=== PATIENT | female | born 1970 | race African-American/Black ===

== ENCOUNTER 2018-06-01 11:26 | Observation (INO) ==
[2018-06-01] MEDS ORDERED: Magnesium Sulfate Inj 2 GM in Sodium Chlor 0.9% Inj 96 ML IV.SIG ONE (12:42)
--- NOTE | 2018-06-01 12:58 | ED ---
HPI General Chief complaint: Eye Problems Stated complaint: headache/eye pain Time Seen by Provider: 06/01/18 12:33 Source: patient and RN notes reviewed Mode of arrival: ambulatory History of Present Illness HPI narrative: 47yF presenting with headache and right eye pain. The patient is visiting from [place] and says that she has a history of "too much fluid in my brain that was making the nerves in my left eye swollen" for which she was given 90 days of diamox, finished in March. She says that yesterday she began to have diffuse headache which is constant, not made better or worse by anything, moderate intensity, non-radiating, and associated with right eye pain. She woke up this morning and felt like she "had something stuck in my eye ". Denies recent head injury, fever or chills, confusion, visual disturbance, or difficulty ambulating. She has required LP in the past. Family history non-contributory. Related Data Home Medications Medication Instructions Recorded Confirmed insulin asp prt-insulin aspart 30 unit SUB-Q AC BREAKFAST 06/01/18 06/01/18 [Novolog Mix 70-30 U-100 Insuln] insulin aspart U-100 [Novolog 20 unit SUB-Q AC DINNER 06/01/18 06/01/18 U-100 Insulin aspart] metformin 500 mg PO BID 06/01/18 06/01/18 omeprazole 40 mg PO DAILY 06/01/18 06/01/18 oxycodone 15 mg PO Q4-6H PRN 06/01/18 06/01/18 Previous Rx's Medication Instructions Recorded atorvastatin [Lipitor] 10 mg PO DAILY #30 tab 06/01/18 Allergies Allergy/AdvReac Type Severity Reaction Status Date / Time No Known Allergies Allergy Verified 06/01/18 12:28 Review of Systems ROS: all other systems reviewed are negative Constitutional Denies fever(s) Eyes Reports eye pain ENT Denies nasal congestion Cardiovascular Denies chest pain Respiratory Denies cough Gastrointestinal Denies nausea Genitourinary Denies dysuria Musculoskeletal Denies back pain Neurologic Denies confusion Psychiatric Denies confusion PMFSH History History Provided By: Patient Medical History Medical History Pituitary tumor (Acute) Chronic back pain (Acute) Diabetes (Acute) GERD (gastroesophageal reflux disease) (Acute) Irritable bowel (Acute) Migraine (Acute) Surgical History Surgical History H/O laparoscopy (Acute) History of cholecystectomy (Acute) History of tubal ligation (Acute) Hx of fusion of cervical spine (Acute) H/O: hysterectomy (Acute) Family History Family History Mother Lung cancer Diabetes Sister Breast cancer Diabetes Social History Social History Substance History: No History of Abuse Second Hand Smoke Exposure: No Smoking Status: Never smoker How Often Do You Have a Drink Containing Alcohol: 2 to 4 times a month Recent Travel in [facility] within the Last 8 Weeks: No Recent Out of Country Travel within the Last 8 Weeks: No Immunization History Tetanus Immunization: Unsure Hx Influenza Vaccine This Season: Yes Exam Const General: healthy appearing and no acute distress HENMT Head: normocephalic and atraumatic Face and sinus: normal facial exam Eyes Other: Pupils 3 mm and reactive bilaterally, no afferent pupillary defect, subconjunctival injection of right eye. EOMI, no nystagmus or entrapment. IOP- 11 OS, 10 OD Visual acuity 20/50 bilaterally uncorrected Able to visualize optic discs bilaterally Chest Chest: normal inspection of the chest Resp Effort & Inspection: normal respiratory effort Auscultation: no rhonchi and no wheezes Cardio Rate: regular rate Rhythm: regular rhythm GI Inspection: non-distended Palpation: soft and nontender Skin General: no rashes or lesions noted Neuro General: alert, awake, oriented x3, no focal motor deficits and CN's II-XI intact bilaterally Other: Speech clear and fluent, motor strength 5/5 and sensation intact throughout, ambulates with steady even gait Psych Affect: normal affect Course Consultations Consultation #1: Case discussed with Dr. Vital of neurology; if patient's headache is controlled, she can be discharged home on diamox 500 BID. Time: 14:00 Initial Documented Vital Signs Temperature 97.5 F L 06/01/18 12:01 Pulse Rate 73 06/01/18 12:01 Respiratory Rate 20 06/01/18 12:01 Blood Pressure 143/86 H 06/01/18 12:01 Pulse Oximetry 99 06/01/18 12:01 Last Documented Vital Signs Temperature 97.5 F L 06/01/18 12:01 Pulse Rate 88 06/01/18 16:17 Respiratory Rate 16 06/01/18 16:17 Blood Pressure 161/68 H 06/01/18 16:17 Pulse Oximetry 100 06/01/18 16:17 Medical Decision Making MDM Narrative Medical decision making narrative: Assessment: 47yF presenting with right eye pain and headache Plan: Pain control Basic labs [facility] Addendum: Patient has intractable headache despite multiple doses of medications , may need lumbar puncture for SINGLETON control. Case discussed with Dr. Keating of [facility]. Medical Screen Exam Complete: Yes Emergency Medical Condition: Yes Differential Diagnosis Differential Diagnosis: Differential diagnosis includes, but is not limited to: pseudotumor cerebri, hydrocephalus, acute angle closure glaucoma, corneal abrasion, migraine Lab Data Lab results reviewed: Yes I reviewed the patient's lab results. Result diagrams: 06/01/18 12:53 06/01/18 12:53 Lab Results 06/01/18 06/01/18 Range/Units 12:53 12:53 WBC 7.2 (4.0-11.0) th/mm3 RBC 4.23 (4.00-5.30) mil/mm3 Hgb 11.5 L (11.6-15.3) gm/dL Hct 35.1 (35.0-46.0) % MCV 83.0 (80.0-100.0) fL MCH 27.3 (27.0-34.0) pg MCHC 32.9 (32.0-36.0) % RDW 14.3 (11.6-17.2) % Plt Count 283 (150-450) th/mm3 MPV 7.8 (7.0-11.0) fL Neut % (Auto) 48.1 (16.0-70.0) % Lymph % (Auto) 41.4 (9.0-44.0) % [place] % (Auto) 9.1 H (0.0-8.0) % Eos % (Auto) 1.0 (0.0-4.0) % Baso % (Auto) 0.4 (0.0-2.0) % Neut # (Auto) 3.5 (1.8-7.7) th/mm3 Lymph # (Auto) 3.0 (1.0-4.8) th/mm3 [place] # (Auto) 0.7 (0.0-0.9) th/mm3 Eos # (Auto) 0.1 (0.0-0.4) th/mm3 Baso # (Auto) 0.0 (0.0-0.2) th/mm3 WBC Differential . Differential Comment Auto diff final Sodium 141 (136-145) meq/L Potassium 3.3 L (3.5-5.1) meq/L Chloride 105 (98-107) meq/L Carbon Dioxide 29.5 (21.0-32.0) meq/L Anion Gap 7 (5-15) meq/L BUN 6 L (7-18) mg/dL Creatinine 0.61 (0.50-1.00) mg/dL Estimated GFR Greater than 89 (>89) mL/min Random Glucose 73 L (74-106) mg/dL Calcium 8.4 L (8.5-10.1) mg/dL Total Bilirubin 0.6 (0.2-1.0) mg/dL AST 19 (15-37) U/L ALT 30 (10-53) U/L Alkaline Phosphatase 115 (45-117) U/L Total Protein 7.5 (6.4-8.2) g/dL Albumin 3.4 (3.4-5.0) g/dL Imaging Data Radiologist's impression: Head CT 06/01/18 12:42 CONCLUSION: 1. Negative CT Head non contrast. . Discharge Plan Discharge Disposition Patient Disposition: 30 Still Patient Discharge Condition Condition: Stable Discharge Details Diagnosis: Pseudotumor cerebri, Acute intractable headache Physicians Team ED Provider: Myra Davis Attending Provider: Azucena Keating Other Providers: Jeremy Friedman Status ED Status: Admitted Observation Patient
[2018-06-01 13:11] LABS: Baso % (Auto) 0.4 % (0.0-2.0); Eos # (Auto) 0.1 th/mm3 (0.0-0.4); Hematocrit 35.1 % (35.0-46.0); Hemoglobin 11.5 gm/dL (11.6-15.3); Lymph % (Auto) 41.4 % (9.0-44.0); Mean Corpuscular HGB Conc 32.9 % (32.0-36.0); Mean Corpuscular Hemoglobin 27.3 pg (27.0-34.0); Mean Platelet Volume 7.8 fL (7.0-11.0); Mono # (Auto) 0.7 th/mm3 (0.0-0.9); Mono % (Auto) 9.1 % (0.0-8.0); Neut # (Auto) 3.5 th/mm3 (1.8-7.7); Neut % (Auto) 48.1 % (16.0-70.0); Platelet Count 283 th/mm3 (150-450); Red Blood Count 4.23 mil/mm3 (4.00-5.30); Red Cell Distribution Width 14.3 % (11.6-17.2); White Blood Count 7.2 th/mm3 (4.0-11.0)
[2018-06-01 13:28] LABS: Albumin 3.4 g/dL (3.4-5.0); Anion Gap 7 meq/L (5-15); Aspartate Aminotransferase 19 U/L (15-37); Blood Urea Nitrogen 6 mg/dL (7-18); Calcium 8.4 mg/dL (8.5-10.1); Carbon Dioxide 29.5 meq/L (21.0-32.0); Chloride 105 meq/L (98-107); Glomerular Filtration Rate Greater Than 89 mL/min (>89); Glucose,Random 73 mg/dL (74-106); Potassium 3.3 meq/L (3.5-5.1); Sodium 141 meq/L (136-145)
[2018-06-01 13:29] LABS: Alanine Aminotransferase 30 U/L (10-53)
[2018-06-01 13:31] LABS: Alkaline Phosphatase 115 U/L (45-117); Total Protein 7.5 g/dL (6.4-8.2)
--- NOTE | 2018-06-01 13:59 | CT ---
EXAM DATE: 06/01/2018 1:55 PM EDT AGE/SEX: 47 years / Female INDICATIONS: Cephalgia for two days. CLINICAL DATA: This is the patient's initial encounter. Patient reports that signs and symptoms have been present for 2 days and indicates a pain score of 8/10. MEDICAL/SURGICAL HISTORY: Diabetes. pituitary tumor None. RADIATION DOSE: 56.35 CTDI (mGy) COMPARISON: No prior exams available for comparison. TECHNIQUE: CT of the head without contrast. Using automated exposure control and adjustment of the mA and/or kV according to patient size, radiation dose was kept as low as reasonably achievable to ob tain optimal diagnostic quality images. DICOM format image data is available electronically for revi ew and comparison. FINDINGS: Cerebrum: The ventricles are normal for age. No evidence of midline shift, mass lesion, hemorrhage or acute infarction. No extraaxial fluid collections are seen. Posterior Fossa: The cerebellum and brainstem are intact. The 4th ventricle is midline. The cerebe llopontine angle is unremarkable. Extracranial: The visualized portion of the orbits is intact. Skull: The calvaria is intact. No evidence of skull fracture. CONCLUSION: 1. Negative CT Head non contrast. . Electronically signed by: Ferdinand Grace MD 06/01/2018 1:57 PM EDT
[2018-06-01] MEDS ORDERED: acetaZOLAMIDE 250 MG TABLET PO ONE (14:24)
[2018-06-01] MEDS ORDERED: Butalbital/APAP/Caff 50/325/40 MG Tablet PO ONE (14:24)
[2018-06-01] MEDS ORDERED: Ketorolac Inj 30 MG/ML (IVP) Vial IV.PUSH ONE (14:24)
[2018-06-01] MEDS ORDERED: Bisacodyl 10 MG Supp RECTAL PRN (17:04)
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
[2018-06-01] MEDS ORDERED: Zolpidem Tartrate 5 MG Tablet PO PRN (17:05)
[2018-06-01] MEDS ORDERED: Morphine Inj 4 MG/ML Vial IV.PUSH PRN (17:18)
[2018-06-01] MEDS ORDERED: Dextrose 50% in Water 50 ML Vial IV.PUSH PRN (17:21)
[2018-06-01] MEDS: Ketorolac Inj 30 MG/ML (IVP) Vial IV.PUSH SCH ×2 (18:02→23:50)
--- NOTE | 2018-06-01 18:15 | P.CONNEU ---
History of Present Illness Service: NEUROLOGY Consult date: 06/01/18 Primary Care Provider: Isaias Stanton Chief Complaint: HEADACHE Review of Systems All other systems reviewed negative except as stated in HPI [facility] - History History Provided By: Patient - Medical History Medical History: Medical History (Last Updated 06/01/18 @ 13:08 by Loraine Yates RN) Pituitary tumor (Acute) Chronic back pain Diabetes GERD (gastroesophageal reflux disease) Irritable bowel Migraine - Surgical History Surgical History: Surgical History (Last Updated 06/01/18 @ 17:02 by Azucena Keating MD) H/O laparoscopy History of cholecystectomy History of tubal ligation Hx of fusion of cervical spine H/O: hysterectomy - Family History Family History: Family History (Last Updated 06/01/18 @ 17:03 by Azucena Keating MD) Mother Lung cancer Diabetes Sister Breast cancer Diabetes - Tobacco History Second Hand Smoke Exposure: No Smoking Status: Never smoker - Alcohol History How Often Do You Have a Drink Containing Alcohol: 2 to 4 times a month - Substance Use History Substance History: No History of Abuse - Travel History Recent Travel in the [place] Within the Last 8 Weeks: No Recent Travel Out of the Country Within the Last 8 Weeks: No - Immunization History Tetanus Immunization: Unsure Hx Influenza Vaccine This Season: Yes Medications and Allergies Active Medications: Active Medications Acetazolamide (Diamox) 500 mg PO Q12HR NOLAN Al Hydroxide/Mg Hydroxide (Milk Of Magnesia Liq) 30 ml PO Q12H PRN PRN Reason: Mild Constipation Aspirin (Ecotrin) 81 mg PO DAILY NOLAN Bisacodyl (Dulcolax Supp) 10 mg RECTAL DAILY PRN PRN Reason: SEVERE CONSITIPATION Dextrose (D50w Vial) 50 ml IV.PUSH UNSCH PRN PRN Reason: PER HYPOGLYCEMIA PROTOCOL Glucagon (Glucagon Inj) 1 mg OTHER PRN PRN PRN Reason: for Hypoglycemia Protocol Insulin Aspart (Novolog Insulin Correctional Sugar Inj) 0 unit SQ ACHS NOLAN; Protocol Ketorolac Tromethamine (Toradol Inj) 30 mg IV.PUSH Q6H NOLAN Last Admin: 06/01/18 18:02 Dose: 30 mg Lactulose (Lactulose Liq) 30 ml PO DAILY PRN PRN Reason: SEVERE CONSITIPATION Morphine Sulfate (Morphine Inj) 5 mg IV.PUSH Q4H PRN PRN Reason: BREAKTHROUGH PAIN Oxycodone HCl (Roxicodone) 10 mg PO Q4H PRN PRN Reason: PAIN SCALE 1 TO 10 Pantoprazole Sodium (Protonix) 40 mg PO DAILY NOLAN Promethazine HCl (Phenergan Inj) 25 mg IM Q6H PRN PRN Reason: NAUSEA OR VOMITING Last Admin: 06/01/18 18:04 Dose: 25 mg Senna/Docusate Sodium (Carrie-Colace) 1 tab PO BID NOLAN Sennosides (Senokot) 17.2 mg PO Q12H PRN PRN Reason: Moderate Constipation Zolpidem Tartrate (Ambien) 5 mg PO HS PRN PRN Reason: INSOMNIA Allergies Allergy/AdvReac Type Severity Reaction Status Date / Time No Known Allergies Allergy Verified 06/01/18 12:28 Home Medications Medication Instructions Recorded Confirmed Type insulin asp prt-insulin aspart 30 unit SUB-Q AC BREAKFAST 06/01/18 06/01/18 History [Novolog Mix 70-30 U-100 Insuln] insulin aspart U-100 [Novolog 20 unit SUB-Q AC DINNER 06/01/18 06/01/18 History U-100 Insulin aspart] metformin 500 mg PO BID 06/01/18 06/01/18 History omeprazole 40 mg PO DAILY 06/01/18 06/01/18 History oxycodone 15 mg PO Q4-6H PRN 06/01/18 06/01/18 History Exam Vital signs: Vital Signs 06/01/18 12:01 06/01/18 12:37 06/01/18 16:17 Temperature 97.5 F L Pulse Rate 73 76 88 Respiratory Rate 20 16 16 Blood Pressure 143/86 H 163/77 H 161/68 H Pulse Oximetry 99 100 100 06/01/18 18:10 Temperature Pulse Rate 75 Respiratory Rate 16 Blood Pressure 158/80 H Pulse Oximetry 99 Intake & Output 05/31/18 06/01/18 06/01/18 18:59 06:59 18:59 Intake Total 100 / 100 Balance 100 / 100 Weight 69 kg Intake: IV 100 / 100 Magnesium Sulfate Inj 2 GM In 100 / 100 NS Inj 96 ML @ 50 mls/hr IV.SIG ONCE ONE Rx#:[id number] - Constitutional no acute distress - Routine HEENT Exam Head: Present: normocephalic, atraumatic - Detailed Eye Exam Visual acuity: Visual Acuity Visual Acuity Uncorrected [ 20/50 Bilateral] Results - Labs CBC & Chem 7: 06/01/18 12:53 06/01/18 12:53 Labs: Laboratory Results - last 24 hr 06/01/18 06/01/18 12:53 12:53 WBC 7.2 RBC 4.23 Hgb 11.5 L Hct 35.1 MCV 83.0 MCH 27.3 MCHC 32.9 RDW 14.3 Plt Count 283 MPV 7.8 Neut % (Auto) 48.1 Lymph % (Auto) 41.4 [place] % (Auto) 9.1 H Eos % (Auto) 1.0 Baso % (Auto) 0.4 Neut # (Auto) 3.5 Lymph # (Auto) 3.0 [place] # (Auto) 0.7 Eos # (Auto) 0.1 Baso # (Auto) 0.0 WBC Differential . Differential Comment Auto diff final Sodium 141 Potassium 3.3 L Chloride 105 Carbon Dioxide 29.5 Anion Gap 7 BUN 6 L Creatinine 0.61 Estimated GFR Greater than 89 Random Glucose 73 L Calcium 8.4 L Total Bilirubin 0.6 AST 19 ALT 30 Alkaline Phosphatase 115 Total Protein 7.5 Albumin 3.4 - Imaging Impressions Head CT 06/01/18 12:42 CONCLUSION: 1. Negative CT Head non contrast. . Review/Management - Diagnosis (1) Anemia Code(s): D64.9 - Anemia, unspecified Status: Acute Current Visit: Yes - Review/Management Plan: 1. BRAIN SCAN FOR PITIUTORY PATHOLOGY, MAY CONSIDER LP FOR OPEN PRESSURE 2. LAB PROLACTIN LEVEL FOR PIT ABN 3. LAB ESR FOR ?TEMPORAL ARTERIRTIS 4. SX TX D/W ER OK TO RESUME DIAMOX 500MG BID WILL FOLLOW NEUROLGIST
[2018-06-01] MEDS ORDERED: acetaZOLAMIDE 250 MG TABLET PO SCH (21:00)
[2018-06-01] MEDS: acetaZOLAMIDE 250 MG TABLET PO SCH (21:42)
[2018-06-01] MEDS: Senna/Docusate Sodium 8.6/50 MG Tablet PO SCH (21:42)
[2018-06-01] MEDS: Insulin NovoLOG Aspart Correctional Sugar Inj SQ SCH (21:43)
[2018-06-02 05:04] LABS: Calcium 8.6 mg/dL (8.5-10.1); Carbon Dioxide 27.3 meq/L (21.0-32.0)
[2018-06-02 05:39] VITALS: RESP 16
[2018-06-02] MEDS: Ketorolac Inj 30 MG/ML (IVP) Vial IV.PUSH SCH ×2 (05:39→12:29)
--- NOTE | 2018-06-02 08:20 | P.PNNEU ---
Subjective Active Medications: Active Medications Acetazolamide (Diamox) 500 mg PO Q12HR [facility] Last Admin: 06/01/18 21:42 Dose: 500 mg Al Hydroxide/Mg Hydroxide (Milk Of Magnesia Liq) 30 ml PO Q12H PRN PRN Reason: Mild Constipation Aspirin (Ecotrin) 81 mg PO DAILY [facility] Bisacodyl (Dulcolax Supp) 10 mg RECTAL DAILY PRN PRN Reason: SEVERE CONSITIPATION Dextrose (D50w Vial) 50 ml IV.PUSH UNSCH PRN PRN Reason: PER HYPOGLYCEMIA PROTOCOL Glucagon (Glucagon Inj) 1 mg OTHER PRN PRN PRN Reason: for Hypoglycemia Protocol Insulin Aspart (Novolog Insulin Correctional Sugar Inj) 0 unit SQ ACHS NOLAN; Protocol Last Admin: 06/01/18 21:43 Dose: 7 unit Insulin Aspart (Novolog Insulin Correctional Sugar Inj) 20 unit SQ AC DINNER [facility] Insulin Aspart (Novolog Mix 70/30 Inj) 30 units SQ AC BREAKFAST [facility] Ketorolac Tromethamine (Toradol Inj) 30 mg IV.PUSH Q6H [facility] Last Admin: 06/02/18 05:39 Dose: 30 mg Lactulose (Lactulose Liq) 30 ml PO DAILY PRN PRN Reason: SEVERE CONSITIPATION Morphine Sulfate (Morphine Inj) 5 mg IV.PUSH Q4H PRN PRN Reason: BREAKTHROUGH PAIN Oxycodone HCl (Roxicodone) 10 mg PO Q4H PRN PRN Reason: PAIN SCALE 1 TO 10 Last Admin: 06/01/18 21:49 Dose: 10 mg Pantoprazole Sodium (Protonix) 40 mg PO DAILY [facility] Promethazine HCl (Phenergan Inj) 25 mg IM Q6H PRN PRN Reason: NAUSEA OR VOMITING Last Admin: 06/01/18 18:04 Dose: 25 mg Senna/Docusate Sodium (Carrie-Colace) 1 tab PO BID [facility] Last Admin: 06/01/18 21:42 Dose: 1 tab Sennosides (Senokot) 17.2 mg PO Q12H PRN PRN Reason: Moderate Constipation Zolpidem Tartrate (Ambien) 5 mg PO HS PRN PRN Reason: INSOMNIA Allergies/Adverse Reactions: Allergies Allergy/AdvReac Type Severity Reaction Status Date / Time No Known Allergies Allergy Verified 06/01/18 12:28 Physical Exam Vital signs: Vital Signs 06/01/18 12:01 06/01/18 12:37 06/01/18 16:17 Temperature 97.5 F L Pulse Rate 73 76 88 Respiratory Rate 20 16 16 Blood Pressure 143/86 H 163/77 H 161/68 H Pulse Oximetry 99 100 100 06/01/18 18:10 06/01/18 18:40 06/01/18 20:00 Temperature Pulse Rate 75 Respiratory Rate 16 16 Blood Pressure 158/80 H Pulse Oximetry 99 98 06/01/18 21:12 06/01/18 22:30 06/02/18 00:30 Temperature 99.7 F H Pulse Rate 86 Respiratory Rate 18 16 Blood Pressure 144/67 H Pulse Oximetry 98 06/02/18 04:00 06/02/18 06:20 06/02/18 07:37 Temperature 97.5 F L 97.4 F L Pulse Rate 82 80 Respiratory Rate 16 16 16 Blood Pressure 144/61 H 145/71 H Pulse Oximetry 100 98 Intake & Output 06/01/18 06/02/18 06/02/18 18:59 06:59 18:59 Intake Total 100 / 100 480 / 480 Balance 100 / 100 480 / 480 Weight 69 kg 92.986 kg Intake: IV 100 / 100 Magnesium Sulfate Inj 2 GM In 100 / 100 NS Inj 96 ML @ 50 mls/hr IV.SIG ONCE ONE Rx#:[id number] Oral 480 / 480 Other: # Voids 1 Date of Last Bowel Movement 06/01/18 # Bowel Movements 1 Weight On Admission 92.986 kg Narrative: pupil = vff face sym no nystag r disc sharp 5/5 t/o - Detailed Eye Exam Visual acuity: Visual Acuity Visual Acuity Uncorrected [ 20/50 Bilateral] Objective Laboratory Results - last 24 hr 06/01/18 06/01/18 06/01/18 12:53 12:53 21:13 WBC 7.2 RBC 4.23 Hgb 11.5 L Hct 35.1 MCV 83.0 MCH 27.3 MCHC 32.9 RDW 14.3 Plt Count 283 MPV 7.8 Neut % (Auto) 48.1 Lymph % (Auto) 41.4 [place] % (Auto) 9.1 H Eos % (Auto) 1.0 Baso % (Auto) 0.4 Neut # (Auto) 3.5 Lymph # (Auto) 3.0 [place] # (Auto) 0.7 Eos # (Auto) 0.1 Baso # (Auto) 0.0 WBC Differential . Differential Comment Auto diff final ESR Sodium 141 Potassium 3.3 L Chloride 105 Carbon Dioxide 29.5 Anion Gap 7 BUN 6 L Creatinine 0.61 Estimated GFR Greater than 89 POC Glucose 297 H Random Glucose 73 L Calcium 8.4 L Total Bilirubin 0.6 AST 19 ALT 30 Alkaline Phosphatase 115 Total Protein 7.5 Albumin 3.4 06/02/18 06/02/18 06/02/18 03:34 03:34 07:49 WBC RBC Hgb Hct MCV MCH MCHC RDW Plt Count MPV Neut % (Auto) Lymph % (Auto) [place] % (Auto) Eos % (Auto) Baso % (Auto) Neut # (Auto) Lymph # (Auto) [place] # (Auto) Eos # (Auto) Baso # (Auto) WBC Differential Differential Comment ESR 28 H Sodium 140 Potassium 4.0 Chloride 106 Carbon Dioxide 27.3 Anion Gap 7 BUN 9 Creatinine 0.93 Estimated GFR 78 L POC Glucose 300 H Random Glucose 267 H D Calcium 8.6 Total Bilirubin AST ALT Alkaline Phosphatase Total Protein Albumin Review/Management - Diagnosis (1) Anemia Code(s): D64.9 - Anemia, unspecified Status: Acute Current Visit: Yes - Review/Management Plan: imp long hx migraines which i think probably this is top 100 a day not working and could dc and start elavil 10 bedtime hx pseudotumor on diamox continue that she lives in [place] and i think if mri neg she could dc and drive back home and have them decide if they think she needs an LP there i do not feel strongly with sharp discs that she needs one here needs wt loss for sharma and dm i dw her
[2018-06-02] MEDS: Insulin NovoLOG Aspart Correctional Sugar Inj SQ SCH ×2 (09:39→13:34)
[2018-06-02] MEDS: acetaZOLAMIDE 250 MG TABLET PO SCH (09:42)
[2018-06-02] MEDS: Senna/Docusate Sodium 8.6/50 MG Tablet PO SCH (09:42)
--- NOTE | 2018-06-02 11:03 | MR ---
EXAM DATE: 06/02/2018 10:56 AM EDT AGE/SEX: 47 years / Female INDICATIONS: Cephalgia. CLINICAL DATA: This is the patient's initial encounter. Patient reports that signs and symptoms have been present for 2 days and indicates a pain score of 4/10. MEDICAL/SURGICAL HISTORY: . Pituitary tumor. Pseudotumor cerebri. Fusion, cervical. Hysterect charbel. Cholecystectomy. COMPARISON: No prior exams available for comparison. TECHNIQUE: Multiplanar, multisequence examination of the brain was performed without and with 9 ml Ga davist (gadobutrol) contrast as a single exam dose. FINDINGS: MRI of the brain is performed in sagittal, axial and coronal planes. The craniocervical junction and midline structures are unremarkable. Diffusion weighted images demonstrate no abnormality. No acute c ortical infarction, acute hemorrhage, mass effect or midline shift is seen. Examination pituitary fos sa demonstrates a prominent convex superior border of the pituitary gland touching the optic chiasm. Detailed evaluation pituitary is recommended. No abnormality is identified in the cavernous sinuses. Following the administration of contrast no abnormal enhancement is identified. Posterior fossa stru ctures are unremarkable. CONCLUSION: No evidence of acute intracranial pathology. Diffuse enlargement of the pituitary gland with suprasellar extension. Detailed evaluation pituitary is recommended. Electronically signed by: Jeremy Obregon MD 06/02/2018 11:02 AM EDT
--- NOTE | 2018-06-02 12:13 | P.PN ---
Subjective Interval history: Follow-up migraine headache flareup June 02, 2018-patient seen and examined, still complaining of headaches and right eye tearing pain as well as left eye pain which is chronic for her. Also complaining of photophobia. Denies any facial numbness Physical Exam Vital signs: Vital Signs 06/01/18 12:37 06/01/18 16:17 06/01/18 18:10 Temperature Pulse Rate 76 88 75 Respiratory Rate 16 16 16 Blood Pressure 163/77 H 161/68 H 158/80 H Pulse Oximetry 100 100 99 06/01/18 18:40 06/01/18 20:00 06/01/18 21:12 Temperature 99.7 F H Pulse Rate 86 Respiratory Rate 16 Blood Pressure 144/67 H Pulse Oximetry 98 98 06/01/18 22:30 06/02/18 00:30 06/02/18 04:00 Temperature 97.5 F L Pulse Rate 82 Respiratory Rate 18 16 16 Blood Pressure 144/61 H Pulse Oximetry 100 06/02/18 06:20 06/02/18 07:37 06/02/18 08:40 Temperature 97.4 F L Pulse Rate 80 Respiratory Rate 16 16 Blood Pressure 145/71 H Pulse Oximetry 98 99 06/02/18 11:46 Temperature 97.6 F Pulse Rate 97 H Respiratory Rate 16 Blood Pressure 133/68 Pulse Oximetry 98 Intake & Output 06/01/18 06/02/18 06/02/18 18:59 06:59 18:59 Intake Total 100 / 100 480 / 480 Balance 100 / 100 480 / 480 Weight 69 kg 92.986 kg Intake: IV 100 / 100 Magnesium Sulfate Inj 2 GM In 100 / 100 NS Inj 96 ML @ 50 mls/hr IV.SIG ONCE ONE Rx#:[id number] Oral 480 / 480 Other: # Voids 1 Date of Last Bowel Movement 06/01/18 # Bowel Movements 1 Weight On Admission 92.986 kg Narrative: GENERAL: NAD SKIN: Warm and dry. HEAD: Atraumatic. Normocephalic. EYES: Pupils equal and round. No scleral icterus. No injection or drainage. ENT: No nasal bleeding or discharge. Mucous membranes pink and moist. NECK: Trachea midline. No JVD. CARDIOVASCULAR: Regular rate and rhythm. RESPIRATORY: No accessory muscle use. Clear to auscultation. Breath sounds equal bilaterally. GASTROINTESTINAL: Abdomen soft, non-tender, nondistended. Hepatic and splenic margins not palpable. MUSCULOSKELETAL: Extremities without clubbing, cyanosis, or edema. No obvious deformities. NEUROLOGICAL: Awake and alert. No obvious cranial nerve deficits. Motor grossly within normal limits. Five out of 5 muscle strength in the arms and legs. Normal speech. PSYCHIATRIC: Appropriate mood and affect; insight and judgment normal. - Detailed Eye Exam Visual acuity: Visual Acuity Visual Acuity Uncorrected [ 20/50 Bilateral] Results - Labs CBC & Chem 7: 06/01/18 12:53 06/02/18 03:34 Laboratory Results - last 24 hr 06/01/18 06/01/18 06/01/18 12:53 12:53 21:13 WBC 7.2 RBC 4.23 Hgb 11.5 L Hct 35.1 MCV 83.0 MCH 27.3 MCHC 32.9 RDW 14.3 Plt Count 283 MPV 7.8 Neut % (Auto) 48.1 Lymph % (Auto) 41.4 [place] % (Auto) 9.1 H Eos % (Auto) 1.0 Baso % (Auto) 0.4 Neut # (Auto) 3.5 Lymph # (Auto) 3.0 [place] # (Auto) 0.7 Eos # (Auto) 0.1 Baso # (Auto) 0.0 WBC Differential . Differential Comment Auto diff final ESR Sodium 141 Potassium 3.3 L Chloride 105 Carbon Dioxide 29.5 Anion Gap 7 BUN 6 L Creatinine 0.61 Estimated GFR Greater than 89 POC Glucose 297 H Random Glucose 73 L Calcium 8.4 L Total Bilirubin 0.6 AST 19 ALT 30 Alkaline Phosphatase 115 Total Protein 7.5 Albumin 3.4 TSH Beta HCG, Quant 06/02/18 06/02/18 06/02/18 03:34 03:34 03:34 WBC RBC Hgb Hct MCV MCH MCHC RDW Plt Count MPV Neut % (Auto) Lymph % (Auto) [place] % (Auto) Eos % (Auto) Baso % (Auto) Neut # (Auto) Lymph # (Auto) [place] # (Auto) Eos # (Auto) Baso # (Auto) WBC Differential Differential Comment ESR 28 H Sodium 140 Potassium 4.0 Chloride 106 Carbon Dioxide 27.3 Anion Gap 7 BUN 9 Creatinine 0.93 Estimated GFR 78 L POC Glucose Random Glucose 267 H D Calcium 8.6 Total Bilirubin AST ALT Alkaline Phosphatase Total Protein Albumin TSH 2.010 Beta HCG, Quant Less than 1 06/02/18 07:49 WBC RBC Hgb Hct MCV MCH MCHC RDW Plt Count MPV Neut % (Auto) Lymph % (Auto) [place] % (Auto) Eos % (Auto) Baso % (Auto) Neut # (Auto) Lymph # (Auto) [place] # (Auto) Eos # (Auto) Baso # (Auto) WBC Differential Differential Comment ESR Sodium Potassium Chloride Carbon Dioxide Anion Gap BUN Creatinine Estimated GFR POC Glucose 300 H Random Glucose Calcium Total Bilirubin AST ALT Alkaline Phosphatase Total Protein Albumin TSH Beta HCG, Quant - Imaging Impressions Head CT 06/01/18 12:42 CONCLUSION: 1. Negative CT Head non contrast. . Head MRI 06/02/18 00:00 CONCLUSION: No evidence of acute intracranial pathology. Diffuse enlargement of the pituitary gland with suprasellar extension. Detailed evaluation pituitary is recommended. Assessment and Plan - Assessment (1) Migraine Code(s): G43.909 - Migraine, unspecified, not intractable, without status migrainosus Status: Acute (2) Intractable headache Code(s): R51 - Headache Status: Acute (3) Pseudotumor cerebri Code(s): G93.2 - Benign intracranial hypertension Status: Chronic - Plan 47-year-old female with Migraine headache Input from neurology pending brain MRI Currently on Elavil 10 mg at bedtime, Topamax was discontinued Recommend outpatient follow-up with neurology for LP Pseudotumor cerebri Continue Diamox Diabetes type 2 Labile blood glucose Resume basal insulin and continue sliding scale insulin. Continue to hold oral antihyperglycemic agent Elevated blood pressure Denies any known history of hypertension, May be due to headaches Continue with current as needed medication, however consider starting oral antihypertensive medications if no improvement Hypokalemia Resolved post replacement Questionable history of CVA Continue with aspirin DVT prophylaxis: SCDs Discharge patient to home Condition on discharge: Improved ADA Diet as tolerated Ad Madalyn activity Rx written: see EMR Follow-up with primary care physician
[2018-06-02 15:51] VITALS: BP 120/64; PULSE 90; TEMP 98.2; O2SAT 95
[2018-06-02] MEDS ORDERED: Insulin NovoLOG Aspart Correctional Sugar Inj SQ SCH (16:00)
[2018-06-02] MEDS ORDERED: Gadobutrol PF 10 MMOL/10 ML Vial (for RAD) IV.SIG ONE (16:59)
[2018-06-02] MEDS ORDERED: Amitriptyline 10 MG Tablet PO SCH (21:00)
[2018-06-03] MEDS ORDERED: Insulin Aspart Prot 70/30 1,000 UNITS/10 ML Vial SQ SCH (07:00)
== END 2018-06-02 16:57 | disposition home or self-care (01) ==
LOC: NEPE 11:26 → NEDA 11:26 → NEPFCDU 18:28
PROVIDERS: ADMIT Hospitalist; ATTEND Hospitalist
DX: G89.29 Other chronic pain; K21.9 Gastro-esophageal reflux disease without esophagitis; E11.9 Type 2 diabetes mellitus without complications; G43.909 Migraine, unspecified, not intractable, without status migrainosus; Z90.710 Acquired absence of both cervix and uterus; Z80.3 Family history of malignant neoplasm of breast; E87.6 Hypokalemia; G93.2 Benign intracranial hypertension; M54.9 Dorsalgia, unspecified; Z90.49 Acquired absence of other specified parts of digestive tract; H57.11 Ocular pain, right eye; Z80.1 Family history of malignant neoplasm of trachea, bronchus and lung; Z79.4 Long term (current) use of insulin; K58.9 Irritable bowel syndrome, unspecified; Z98.1 Arthrodesis status; D35.2 Benign neoplasm of pituitary gland; D64.9 Anemia, unspecified; Z86.73 Personal history of transient ischemic attack (TIA), and cerebral infarction without residual deficits; Z98.51 Tubal ligation status; Z83.3 Family history of diabetes mellitus